=== PATIENT | female | born 1950 | race Caucasian/White ===

== ENCOUNTER 2018-05-23 23:53 | Emergency (ER) | payer OTHER ==
[~2018-05-23] VITALS: Ht 160 cm; Wt 74.8 kg
[2018-05-24 00:22] VITALS: BP_SYST 151
[2018-05-24 01:45] LABS: CALCIUM 9.1 mg/dL (8.4-11.0); CREATININE 0.63 mg/dL (0.55-1.30); POTASSIUM 3.8 mmol/L (3.5-5.1); TOTAL BILIRUBIN 0.3 mg/dL (0.0-1.0)
[2018-05-24 01:46] LABS: ALBUMIN 3.2 g/dL (3.4-4.8)
[2018-05-24 02:01] LABS: EOSINOPHILS % (AUTO) 3.1 % (0.0-4.0); HEMOGLOBIN 12.1 g/dL (12.0-16.0); LYMPHOCYTES % (AUTO) 34.2 % (20.5-51.5); MEAN CORPUSCULAR HEMOGLOBIN 27 pg (27-31); MEAN CORPUSCULAR HGB CONC 33 % (32-36); MEAN CORPUSCULAR VOLUME 83 fL (79.0-98.0); NEUTROPHILS % (AUTO) 52.3 % (40.0-70.0); PLATELET COUNT (AUTO) 266 K/uL (130-430); RED BLOOD CELL COUNT(AUTO) 4.45 MIL/uL (4.2-6.2); RED CELL DISTRIBUTION WIDTH 12.8 % (9.0-15.0); WHITE BLOOD COUNT (AUTO) 7.8 K/uL (4.8-10.8)
[2018-05-24 02:02] LABS: BASOPHILS % (AUTO) 0.4 % (0.0-2.0); EOSINOPHILS # (AUTO) 0.2 K/uL (0.0-0.4); LYMPHOCYTES # (AUTO) 2.7 K/uL (1.0-5.5); MONOCYTES # (AUTO) 0.8 K/uL (0.0-1.0); NEUTROPHILS # (AUTO) 4.1 K/uL (1.8-7.7)
[2018-05-24 02:15] VITALS: BP_SYST 140
== END 2018-05-24 02:15 | disposition home or self-care (01) ==
LOC: SED 23:53
DX: J40 Bronchitis, not specified as acute or chronic (principal); R03.0 Elevated blood-pressure reading, without diagnosis of hypertension; Z85.42 Personal history of malignant neoplasm of other parts of uterus; Z88.5 Allergy status to narcotic agent
CPT/HCPCS: 36415; 71045; 80053; 85025; 99284

== ENCOUNTER 2019-05-02 07:57 | Emergency (ER) | payer BC, OTHER ==
[~2019-05-02] VITALS: Ht 160 cm; Wt 72.6 kg
[2019-05-02 08:20] VITALS: BP_SYST 136
--- NOTE | 2019-05-02 08:24 | NUR ---
Patient to ER bed 2 to gown for evaluation. Side rails up.
--- NOTE | 2019-05-02 08:35 | NUR ---
Patient presented to ER PT C/O cough and fever. Patient A&Ox4, skin pink and warm, ambulatory to ER, cough present, pain 6/10, denies N/V/D. Patient states she has cough with fever x1 week. Hx of scleroderma.
--- NOTE | 2019-05-02 08:39 | NUR ---
MATTHIEU Molina at bedside examining patient.
[2019-05-02 09:48] VITALS: BP_SYST 128
--- NOTE | 2019-05-02 09:48 | NUR ---
Patient given written and verbal discharge instructions and verbalizes understanding. ER MD discussed with patient the results and treatment provided. Patient in stable condition. ID arm band removed. Rx of Promethazine & Azithromycin given. Patient educated on pain management and to follow up with PMD. Pain Scale 4/10 tolerable for patient. Opportunity for questions provided and answered. Medication side effect fact sheet provided.
== END 2019-05-02 09:48 | disposition home or self-care (01) ==
LOC: SED 07:57
DX: J40 Bronchitis, not specified as acute or chronic (principal); Z88.5 Allergy status to narcotic agent
CPT/HCPCS: 36415; 71045; 86710; 99284

== ENCOUNTER 2020-02-09 10:38 | Emergency (ER) | payer OTHER, BC ==
[~2020-02-09] VITALS: Ht 160 cm; Wt 72.6 kg
[2020-02-09 10:50] VITALS: BP_SYST 143
--- NOTE | 2020-02-09 10:50 | NUR ---
Patient to ER bed 2 to gown for evaluation. Side rails up.
--- NOTE | 2020-02-09 10:50 | NUR ---
Pt came to ER for chest pain beginning this morning at 0730. Pt states she took 8 baby ASA for the chest pain with no relief.
--- NOTE | 2020-02-09 11:00 | NUR ---
ER at bedside examining patient.
[2020-02-09 11:25] LABS: BASOPHILS % (AUTO) 0.5 % (0.0-2.0); EOSINOPHILS # (AUTO) 0.1 K/uL (0.0-0.4); HEMATOCRIT 39.9 % (36-48); HEMOGLOBIN 13.3 g/dL (12.0-16.0); LYMPHOCYTES # (AUTO) 2.1 K/uL (1.0-5.5); LYMPHOCYTES % (AUTO) 37.2 % (20.5-51.5); MEAN CORPUSCULAR HEMOGLOBIN 28 pg (27-31); MEAN CORPUSCULAR HGB CONC 33 % (32-36); MEAN CORPUSCULAR VOLUME 83 fL (79.0-98.0); MONOCYTES # (AUTO) 0.4 K/uL (0.0-1.0); MONOCYTES % (AUTO) 7.8 % (1.7-9.3); NEUTROPHILS % (AUTO) 53.5 % (40.0-70.0); PLATELET COUNT (AUTO) 202 K/uL (130-430); RED CELL DISTRIBUTION WIDTH 13.6 % (9.0-15.0); WHITE BLOOD COUNT (AUTO) 5.6 K/uL (4.8-10.8)
[2020-02-09] MEDS: KETOROLAC TROMETHAMINE 30 MG VIAL IVP ONE (11:44)
[2020-02-09 11:46] LABS: CALCIUM 9.6 mg/dL (8.4-11.0); CREATININE 0.58 mg/dL (0.55-1.30); POTASSIUM 3.6 mmol/L (3.5-5.1)
[2020-02-09] MEDS ORDERED: ROSU10TA2 PO (11:50)
--- NOTE | 2020-02-09 11:50 | NUR ---
Medication reconciliation completed with information provided by of patient. Any prior medication reconciliation on file was reviewed and corrected.
[2020-02-09 11:52] LABS: TOTAL BILIRUBIN 0.5 mg/dL (0.0-1.0)
[2020-02-09 12:42] VITALS: BP_SYST 142
--- NOTE | 2020-02-09 12:45 | NUR ---
Patient given written and verbal discharge instructions and verbalizes understanding. ER MD discussed with patient the results and treatment provided. Patient in stable condition. ID arm band removed. Rx of Naproxen given. Patient educated on pain management and to follow up with PMD. Pain Scale 0/10 Opportunity for questions provided and answered. Medication side effect fact sheet provided.
== END 2020-02-09 12:45 | disposition home or self-care (01) ==
LOC: SED 10:38
DX: S29.011A Strain of muscle and tendon of front wall of thorax, initial encounter (principal); Z88.5 Allergy status to narcotic agent; X50.0XXA Overexertion from strenuous movement or load, initial encounter; Y93.89 Activity, other specified; Y92.89 Other specified places as the place of occurrence of the external cause; Y99.8 Other external cause status
CPT/HCPCS: 36415; 71045; 80053; 82550; 84484; 85025; 85379; 93005; 96374; 99285; J1885